=== PATIENT | female | born 1930 | race Caucasian/White ===

== ENCOUNTER 2017-02-18 10:48 | Inpatient (IN) ==
[2017-02-18] MEDS ORDERED: 0.9 % Sodium Chloride 1,000 ML ONE ×2 (11:06→11:39)
[2017-02-18] MEDS ORDERED: *HR* Heparin 10,000 UNIT/10 ML VIAL ONE (11:07)
[2017-02-18] MEDS ORDERED: Heparin 1,000 UNITS/500 mL NS 500 ML ONE (11:07)
[2017-02-18] MEDS ORDERED: Nitroglycerin 1,000 MCG/10 ML VIAL IV ONE (11:07)
--- NOTE | 2017-02-18 11:36 | Pre-Sedation Evaluation ---
Pre-sedation evaluation - Pre-sedation checklist Date of procedure: 02/18/17 Procedure: [facility] Recent Vitals: as documented in EMR H&P (including ROS) documented in medical record: Yes Previous reaction to sedatives/anesthetics: Unknown Dietary Status: unknown Airway Assessment: Patient can open mouth completely, TMJ function normal ASA Classification *see protocol: CLASS II-Mild systemic disease, E-EMERGENCY- Add to any of the above to indicate emergent Plan of Care: Pt appropriate candidate for procedure/moderate/conscious sedation , Risks/benefits of procedure/sedation discussed w/ patient/family, If not NPO; Risk of intake outweiged by necessity to perform procedure (STEMI)
[2017-02-18] MEDS ORDERED: *HR* Midazolam HCl 5 MG/5 ML VIAL IVP ONE (11:38)
[2017-02-18] MEDS ORDERED: *HR* Phenylephrine 10 MG/ML VIAL ONE (11:39)
[2017-02-18] MEDS ORDERED: *HR* FentaNYL (PF) 250 MCG/5 ML VIAL ONE (11:39)
--- NOTE | 2017-02-18 11:41 | Cardiology History & Physical ---
Date of Encounter: 02/18/17 Time of Encounter: 12:00 Assessment and Plan (1) Acute OH Current Visit: Yes Status: Acute EKG changes concerning for STEMI. Emergent LHC and risks explained to patient including 1% chance of OH//CVA/CABG/MAICOL/bleeding. She has increased risk of MAICOL given CKD. Patient aware and agreeable with plan. The assessment and plan as outlined above was discussed with the patient and/or family members who expressed understanding and agreement. All questions were answered. Qualifiers: Myocardial infarction ST status: ST elevation myocardial infarction Involved coronary artery: other inferior wall coronary artery Qualified Code(s ): I21.19 - ST elevation (STEMI) myocardial infarction involving other coronary artery of inferior wall (2) Acute renal failure Current Visit: No Status: Acute Contrast will be limited. The assessment and plan as outlined above was discussed with the patient and/or family members who expressed understanding and agreement. All questions were answered. Qualifiers: Acute renal failure type: unspecified Qualified Code(s): N17.9 - Acute kidney failure, unspecified (3) Left lower lobe pneumonia Current Visit: No Status: Acute Antibiotics will be continued. The assessment and plan as outlined above was discussed with the patient and/or family members who expressed understanding and agreement. All questions were answered. Qualifiers: Pneumonia type: due to unspecified organism Qualified Code(s): J18.1 - Lobar pneumonia, unspecified organism History of Present Illness Chief complaint: STEMI HPI: Ms. Jack is a 87 year old female with no previous cardiac history who is hospitalized at [facility] with pneumonia had ST elevation noted on telemetry this morning with EKG showing STEMI. She admits to having intermittent retrosternal chest discomfort that is nonradiating and not relieved with aspirin, heparin and brilinta. It is not associated with dyspnea. She has dementia but states she wants LHC and family wishes the same at this junction. Past Med Surg Social Fam HX - Past Medical History Medical history: cancer, COPD, CVA, dementia, GERD, hyperlipidemia, hypertension , renal disease Psychiatric history: no psych history - Past Surgical History Surgical History: , hysterectomy - Social History Smoking Status: Former smoker Smokeless Tobacco Status: No Alcohol use: none Drug use: none Medications and Allergies Acetaminophen [Tylenol] 650 mg PO Q4HR 02/17/17 [History] Albuterol Sulfate [Albuterol Inhaler] 2 puff IH Q6HR 02/17/17 [History] Amlodipine [Norvasc] 5 mg PO DAILY 02/17/17 [History] Bisacodyl [Laxative] 10 mg PO QAM 02/17/17 [History] CloNIDine HCl [Clonidine HCl] 0.2 mg PO BID 02/17/17 [History] Docusate [Colace] 100 mg PO BID 02/17/17 [History] GuaiFENesin ER [Mucinex] 600 mg PO TID 02/17/17 [History] Lactulose 20 gm PO QAM 02/17/17 [History] Losartan Potassium [Cozaar] 100 mg PO DAILY 02/17/17 [History] Lovastatin [Altoprev] 40 mg PO QAM 02/17/17 [History] Lovastatin [Altoprev] 40 mg PO QAM 02/17/17 [History] Magnesium Hydroxide [Milk of Magnesia] 400 mg PO QAM 02/17/17 [History] Omeprazole 20 mg PO QAM 02/17/17 [History] Vit C/E/Zn/Coppr/Lutein/Zeaxan [Preservision Areds 2 Softgel] 1 cap PO QAM 02/17 [History] Allergies No Known Allergies Allergy (Verified 02/17/17 18:07) All Systems Review: A 10-system review of systems was performed and is negative for pertinent findings except as documented above in the HPI.
[2017-02-18] MEDS ORDERED: DOPamine Premix 0 MG/0 ML BAG ONE (11:47)
[2017-02-18] MEDS ORDERED: *HR* Morphine 2 MG/ML SYRINGE IVP PRN (13:40)
[2017-02-18] MEDS ORDERED: Nitroglycerin 0.4 MG TAB.SUBL SL PRN (13:40)
[2017-02-18] MEDS ORDERED: Ondansetron 4 MG/2 ML VIAL IVP PRN (13:40)
--- NOTE | 2017-02-18 13:47 | Event Note ---
Date of Encounter: 02/18/17 Time of Encounter: 13:30 - Cardiology Event Note Inferior STEMI. RCA ODALYS 2 flow with subtotal occlusion s/p successful PTCA restoring ODALYS 3 coronary blood flow with residual 60% stenosis. Small vessel ~ 2mm. Unable to pass stent despite guide extension, multiple wire and multiple guides. At this point the patient symptoms resolved and ST segment have returned to baseline after PTCA.
--- NOTE | 2017-02-18 13:50 | Invasive Diagnostic Lab Proc ---
Name: Joslyn Jack Date of Study: 02/18/2017 Date: 1930 Ht: 63.0in Medical Record#: [id number] Age: 87 Wt: 134.48lb Gender: Female BSA: 1.63 Order #: [id number] BMI: 23.83 Physicians Procedure Physician: Saúl Quiles MD, [facility] Referring MD: Referring MD: Staff Name Position Time In Sites, [facility] RT (R) Monitor 12:07 PM AdiliaDeborah christensen RT (R) Scrub 12:07 PM Michael Flores RN Zone Manager 12:07 PM Indications Indication STEMI Procedures Performed Procedure L HRT ARTERY/VENTRICLE ANGIO PRQ CARD REVASC NM 1 VSL Pre-Procedure Checklist Informed consent is complete signed and on chart. H\\T\\P is on chart. ID band is on and ID verified with patient. Patient NPO for procedure The procedure was described for the patient and questions were answered. Blood Pressure: 91/43 ECG is on chart. Plan of Care Patient will tolerate the procedure without complications. Adequate level of comfort will be maintained. Hemodynamics will remain stable Patient will recover from procedure without complications. Respiratory function will be maintained. Cardiac rhythm will remain stable. Patient temperature will be maintained. Patient and/or family have verbalized understanding of the procedure. Patient Education Chief Complaint/Reason for Test: Cardiac Cath Developmental Category: Geriatric (65+ years) Developmentally Appropriate for Age: Yes Learning Barriers: Cognitive Education Needs: Procedure Education Method: Verbal Information Taught: Cardiac Cath Educational Evaluation: Not ready to learn Intravenous Access Time IV Size Location DC'd Fluid/Drip Rate Units RN 18g 1 /" Patent On Arrival Rt Forearm 0.9NaCl 25 ml/hr Michael Flores RN 22g 1" Patent On Arrival Lt Hand Michael Flores RN Allergies No Known Allergies Vital Signs Time BP (mmHg) HR (bpm) O2 Sat. RR (bpm) LOC 11:25 AM 91 / 53 47 93 % 16 5 = Fully awake and oriented or at pre-proc level 12:09 PM / % 5 = Fully awake and oriented or at pre-proc level 12:09 PM / % 4 = Oriented but drowsy 12:24 PM / % 4 = Oriented but drowsy 12:39 PM / % 4 = Oriented but drowsy 12:55 PM / % 4 = Oriented but drowsy 01:10 PM / % 4 = Oriented but drowsy 12:07 PM 131 / 55 56 98 % 22 12:12 PM 131 / 53 83 99 % 12:17 PM 123 / 55 93 98 % 16 12:22 PM 123 / 51 82 96 % 9 12:27 PM 130 / 55 103 98 % 12:32 PM 126 / 45 74 97 % 0 12:37 PM 120 / 54 86 98 % 16 12:42 PM 114 / 50 95 98 % 12:47 PM 118 / 54 83 97 % 12:52 PM 109 / 41 75 96 % 12:56 PM 104 / 45 80 99 % 19 01:02 PM 110 / 49 81 99 % 29 01:07 PM 118 / 52 98 99 % 01:12 PM 129 / 52 93 99 % 39 01:17 PM 127 / 50 97 97 % 19 01:22 PM 124 / 53 96 97 % 18 01:27 PM 127 / 58 97 97 % 01:32 PM 138 / 56 98 96 % 17 01:37 PM 142 / 91 129 97 % 4 01:25 PM / % 5 = Fully awake and oriented or at pre-proc level Procedural Medications Time Medication Dose Units Method Given By 12:09 PM Oxygen 2 L/min nasal cannula Michael Flores RN 12:19 PM Versed 1 mg Intravenous Michael Flores RN 12:19 PM Fentanyl 12.5 mcg Intravenous Michael Flores RN 12:19 PM Lidocaine 2% 15 ml Subcutaneous Saúl Quiles MD, [facility] 12:38 PM Heparin 2500 units Intravenous Michael Flores RN 12:52 PM Versed 1 mg Intravenous Michael Flores RN 12:52 PM Fentanyl 25 mcg Intravenous Michael Flores RN ASA Classification: Emergent Procedure: ASA score is assumed Sean Score Preprocedure Postprocedure Activity 2- Moves 4 extremities sustained head lift Activity 2- Moves 4 extremities sustained head lift Circulation 2- SBP +/= 20 points of pre-anesthetic level Circulation 2- SBP +/= 20 points of pre-anesthetic level Consciousness 2- Awake and alert oriented x 3 Consciousness 2- Awake and alert oriented x 3 O2 Saturation 2- Able to maintain O2 satruation of 92% on room air O2 Saturation 2- Able to maintain O2 satruation of 92% on room air Respiratory 2- Able to deep breathe and cough well Respiratory 2- Able to deep breathe and cough well Total Score 10 Total Score 10 Contrast Agent: Isovue Diagnostic Contrast: 75 ml Total Contrast: 75 ml Fluoro Dose: 1560 mGy Activated Clotting Time Time Seconds to Clot 12:38 PM 171 01:04 PM 333 01:39 PM 196 Procedure Log Time Note Enter By 11:21 AM CathStat 12:00 PM Pt arrived to [facility] pul[facility] farm 2 at 12:00 tsites 12:00 PM Physician arrived 12:00 tsites 12:00 PM Eliel and stefani completed tsites 12:00 PM Sign in performed according to hospital policy. tsites 12:00 PM Procedure start 12:00 tsites 12:00 PM Madalyn Allison RT (R) Position: Monitor Time in: 12:00 tsites 12:00 PM Deborah Pat RT (R) Position: Scrub Time in: 12:00 tsites 12:00 PM Michael Flores RN Position: Zone Manager Time in: 12:00 tsites 12:05 PM Case Start 12:05 PM Vitals capture started with the following parameters, Patient=Adult, Interval=5 min, Initial Ogzsobdj=137 mmHg, Deflation Rate=5 mmHg, Cuff placed on Left Arm 12:05 PM Recorded ECG: HR=78 Condition=Condition 1 12:06 PM Vitals capture stopped. 12:06 PM Vitals capture started with the following parameters, Patient=Adult, Interval=5 min, Initial Laolduwa=556 mmHg, Deflation Rate=5 mmHg, Cuff placed on Left Arm 12:06 PM Recorded ECG: HR=80 Condition=Condition 1 12:07 PM HR=56 bpm, JZFG=138/55 mmhg, SpO2=98.0 %, Resp=22 B/min 12:07 PM Patient charges- Angio tray pack, Navilyst 3mm J, Pulse Oximetry and ACIST tubing and transducer tsites 12:07 PM Case Delayed No tsites 12:09 PM Hair removed from procedure site in procedure lab using clippers. Bilateral groin prepped with Chloraprep by Madalyn Allison (R), safety strap applied then patient was draped. Skin intact. tsites 12:09 PM Time: 12:09 Oxygen on at 2 L/min per nasal cannula by Michael Flores RN tsites 12:09 PM Time: 12:09 Patient comfortable and pain free: Yes tsites 12:09 PM Time: 12:09LOC: 5 = Fully awake and oriented or at pre-proc level tsites 12:09 PM Clinical Presentation: STEMI or equivalent tsites 12:12 PM HR=83 bpm, IOUB=154/53 mmhg, SpO2=99 % 12:17 PM HR=93 bpm, LWPC=370/55 mmhg, SpO2=98 %, Resp=16 B/min 12:19 PM Time out performed according to hospital policy tsites 12:19 PM Time: 12:19 Versed 1 mg Intravenous Given by Michael Flores RN tsites 12:19 PM Time: 12:19 Fentanyl 12.5 mcg Intravenous Given by Michael Flores RN tsites 12:20 PM Pressure channel 1 zeroed. 12:20 PM Time: 12:19 15 ml Lidocaine 2% to right groin Subcutaneous Given by Saúl Quiles MD, [facility] tsites 12:21 PM Micro-Introducer Kit utilized for sheath placement tsites 12:22 PM HR=82 bpm, SNKM=851/51 mmhg, SpO2=96.0 %, Resp=9 B/min 12:23 PM Unsuccessful access attempt # 1 into the right Femoral artery. Manual pressure applied to achieve hemostasis.. tsites 12:24 PM Time: 12:09LOC: 4 = Oriented but drowsy tsites 12:24 PM Time: 12:09 Patient comfortable and pain free: Yes tsites 12:25 PM 5Fr FL 4 catheter inserted over the wire DN tsites 12:25 PM Access obtained by percutaneous puncture. 6Fr 10cm Terumo Monument sheath placed in right Femoral artery. [id number] tsites 12:26 PM LCA angiography performed in multiple views. tsites 12:26 PM Recorded Pressure: Ao, CO=621, Condition=Condition 1 (Aorta) Ao 100/53/75 12:27 PM TO=155 bpm, THUK=747/55 mmhg, SpO2=98 % 12:29 PM wire reinserted catheter removed tsites 12:29 PM 5Fr FR 4 catheter inserted over the wire [facility] tsites 12:31 PM RCA angiography performed in multiple views. tsites 12:32 PM Recorded Pressure: Ao, HR=80, Condition=Condition 1 (Aorta) Ao 75/41/56 12:32 PM HR=74 bpm, GHMB=658/45 mmhg, SpO2=97.0 %, Resp=0 B/min 12:32 PM PCI Status Emergency tsites 12:32 PM PCI Indication: Immediate PCI for STEMI tsites 12:33 PM 6Fr JL3.5 Runway guide catheter was used to cannulate the PCI vessel successfully. reused? No tsites 12:34 PM Inflation device was opened. tsites 12:35 PM Guide catheter removed intact. tsites 12:36 PM 6Fr AL1 Runway guide catheter was used to cannulate the PCI vessel successfully. reused? No tsites 12:36 PM ACT drawn tsites 12:37 PM HR=86 bpm, MFPR=507/54 mmhg, SpO2=98.0 %, Resp=16 B/min 12:37 PM Guide catheter removed intact. tsites 12:38 PM 6Fr AR1 Runway guide catheter was used to cannulate the PCI vessel successfully. reused? No tsites 12:38 PM At 12:38 the ACT was 171 seconds. tsites 12:38 PM Time: 12:38 Heparin 2500 units Intravenous Given by Michael Flores RN tsites 12:39 PM Time: 12:24 Patient comfortable and pain free: Yes tsites 12:39 PM Time: 12:24LOC: 4 = Oriented but drowsy tsites 12:40 PM .014 PT Graphix 182cm guide wire across target lesion- successful. reused? No tsites 12:41 PM 2.0 mm x 15 mm Emerge Monorail balloon across target lesion- successful. reused? No tsites 12:41 PM Lesion found in Mid RCA. Pre Stenosis: 99 Pre ODALYS Flow: 2: Partial Flow/Perfusion (> 1 but < 3) tsites 12:42 PM HR=95 bpm, SZEK=339/50 mmhg, SpO2=98 % 12:42 PM Right Coronary, Right Posterior Descending Arteries with Right Posterolateral and Acute Marginal branches with 99 % stenosis. If graft is supplying this area, 0 % stenosis tsites 12:43 PM Recorded Pressure: Ao, HR=82, Condition=Condition 1 (Aorta) Ao 100/42/67 12:45 PM Balloon inflated @ 8 eric for 12 seconds tsites 12:46 PM Balloon catheter removed intact. tsites 12:47 PM HR=83 bpm, VECH=650/54 mmhg, SpO2=97 % 12:47 PM 1.2 mm x 12 mm Pressure Vessel Inspector Monorail balloon across target lesion- successful. reused? No tsites 12:48 PM Balloon catheter removed intact. tsites 12:49 PM 6Fr Guidezilla advanced tsites 12:49 PM 1.2x12 Pressure Vessel Inspector reinserted tsites 12:50 PM Lesion found in Mid LAD. Pre Stenosis: 60 Pre ODALYS Flow: tsites 12:51 PM Lesion found in Mid Circumflex. Pre Stenosis: 99 Pre ODALYS Flow: tsites 12:51 PM Mid/Distal Left Anterior Descending Coronary Artery and diagonal branches with 60% stenosis. If graft is supplying this area, 0 % stenosis tsites 12:51 PM Circumflex, Obtuse Marginal, Left Posterior Descending, and Left Posterolateral Coronary Arteries with 99 % stenosis. If graft is supplying this area, 0 % stenosis tsites 12:52 PM HR=75 bpm, ZPMF=246/41 mmhg, SpO2=96.0 % 12:52 PM Time: 12:52 Versed 1 mg Intravenous Given by Michael Flores RN tsites 12:52 PM Time: 12:52 Fentanyl 25 mcg Intravenous Given by Michael Flores RN tsites 12:54 PM Balloon inflated @ 14 eric for 15 seconds tsites 12:55 PM Time: 12:39LOC: 4 = Oriented but drowsy tsites 12:55 PM Time: 12:39 Patient comfortable and pain free: Yes tsites 12:55 PM Balloon inflated @ 14 eric for 7 seconds tsites 12:56 PM NIBP STAT measurement started. 12:56 PM Balloon inflated @ 14 eric for 10 seconds tsites 12:56 PM Balloon inflated @ 14 eric for 8 seconds tsites 12:56 PM HR=80 bpm, DVRD=722/45 mmhg, SpO2=99 %, Resp=19 B/min 12:56 PM Guide catheter removed intact. tsites 12:57 PM 2.0x15 Emerge reinserted tsites 12:58 PM ACT drawn tsites 01:00 PM Balloon inflated @ 14 eric for 22 seconds tsites 01:00 PM Balloon inflated @ 14 eric for 14 seconds tsites 01:02 PM HR=81 bpm, HGMA=595/49 mmhg, SpO2=99 %, Resp=29 B/min 01:04 PM At 13:04 the ACT was 333 seconds. tsites 01:05 PM Balloon catheter removed intact. tsites 01:06 PM 2.0mm x 18mm Multi-Link Mini Vision RX Stent bare metal stent across target lesion- successful Lot #[id number] tsites 01:07 PM HR=98 bpm, SRWF=835/52 mmhg, SpO2=99 % 01:10 PM Time: 12:55 Patient comfortable and pain free: Yes tsites 01:10 PM Time: 12:55LOC: 4 = Oriented but drowsy tsites 01:12 PM HR=93 bpm, AMWA=138/52 mmhg, SpO2=99 %, Resp=39 B/min 01:17 PM HR=97 bpm, HSRJ=911/50 mmhg, SpO2=97 %, Resp=19 B/min 01:17 PM Guide wire removed intact. tsites 01:17 PM Stent delivery system removed intact. tsites 01:18 PM Guide catheter removed intact. tsites 01:18 PM 6Fr MPA Runway guide catheter was used to cannulate the PCI vessel successfully. reused? No tsites 01:21 PM Guide catheter removed intact. tsites 01:21 PM 6Fr IM Runway guide catheter was used to cannulate the PCI vessel successfully. reused? No tsites 01:22 PM HR=96 bpm, RPWN=836/53 mmhg, SpO2=97 %, Resp=18 B/min 01:24 PM .014 ChoICE PT Extra Support 182cm guide wire across target lesion- successful. reused? No tsites 01:25 PM Time: 13:10LOC: 4 = Oriented but drowsy tsites 01:25 PM Time: 13:10 Patient comfortable and pain free: Yes tsites 01:25 PM Guide wire removed intact. tsites 01:26 PM .014 PT Graphix 182cm guide wire across target lesion- successful. reused? No tsites 01:27 PM HR=97 bpm, NGNG=204/58 mmhg, SpO2=97 % 01:27 PM Guide wire removed intact. tsites 01:28 PM .014 Prowater 180cm guide wire across target lesion- successful. reused? No tsites 01:31 PM Guide wire removed intact. tsites 01:31 PM Guide catheter removed intact. tsites 01:31 PM 5Fr Pigtail catheter inserted over the wire [facility] tsites 01:31 PM Catheter selectively placed in left ventricle tsites 01:32 PM HR=98 bpm, FMCZ=512/56 mmhg, SpO2=96.0 %, Resp=17 B/min 01:33 PM Recorded Pressure: LV, HR=98, Condition=Condition 1 (Left Ventricle) LV 143/-2/15 01:33 PM Recorded Pressure: LV, Ao, HR=98, Condition=Condition 1 (Left Ventricle) LV 140/-7/17, (Aorta) Ao 140/45/82 01:34 PM EDP measured tsites 01:35 PM Catheter removed tsites 01:35 PM Procedure completed at 13:35 tsites 01:36 PM Sign out completed: Radiation Dose 1560 mGy Fluoro Time: 30.3 Isovue 370 - 500ml contrast 75 ml given by Saúl Quiles MD, [facility]. Complications: NoneCardiac Rehab Consult needed: YesConfirmed administered medications: Yes tsites 01:36 PM Isovue 370 - 500ml,1 Bottle(s) used. tsites 01:36 PM Sheath left in place to be pulled on floor/holding areaV+Pad tsites 01:36 PM Post ECG NSR tsites 01:37 PM KQ=463 bpm, WBNG=169/91 mmhg, SpO2=97 %, Resp=4 B/min 01:37 PM Post Blood Pressure 142/91 tsites 01:37 PM 13:37 Post Pulses Bilateral DP \\T\\ PT 1+ tsites 01:37 PM Information taught Cardiac Cath and PCI tsites 01:37 PM Education needs Procedure, Plan of Care, and Responsibilities of Patient in Care tsites 01:37 PM Learning barriers :None tsites 01:37 PM Education Methods Verbal tsites 01:37 PM Education evaluation Able to repeat information tsites 01:37 PM Site status No bleeding/hematoma - Rt Groin as reported by Deborah Pat RT (R) at 13:37 tsites 01:37 PM Opsite applied tsites 01:37 PM Plavix, Effient or Brilinta given Yes in [facility] tsites 01:37 PM Delay to floor No tsites 01:37 PM Patient out of room: 13:37 tsites 01:38 PM Report given to Sudarshan GANT Pt taken to ICU Room #12. 13:37 tsites 01:38 PM Family placed in consult room. tsites 01:39 PM At 13:39 the ACT was 196 seconds. tsites 01:41 PM Time: 13:25 Patient comfortable and pain free: Yes tsites 01:41 PM Time: 13:25LOC: 5 = Fully awake and oriented or at pre-proc level tsites 01:43 PM Coronary Dominance: right tsites Complications Complication None Hemodynamics Pressures Site Systolic/A Wave Diastolic/V Wave Mean AO 100 53 75 AO 75 41 56 AO 100 42 67 LV 143 -2 15 LV 140 -7 17 AO 140 45 82 Post Procedure Information Blood Pressure: 142/91 mmHg Rhythm: NSR Post procedural instructions were given Closure Device Time Device Success/Fail 02/18/2017 1:41:00 PM Manual Compression Site Checks Time Location Status Staff Sheath In? Note 01:37 PM Rt Groin No bleeding/hematoma Deborah Pat RT (R) Pulses Time Site Pre-Procedure Post-Procedure Note 1:37:00 PM Bilateral DP \\T\\ PT 1+ Updated by Madalyn Allison, RT (R) on 02/18/2017 1:45:05 PM Madalyn Allison RT electronically signed on 02/18/2017 1:45:46 PM with status of Final
--- NOTE | 2017-02-18 14:09 | Invasive Diagnostic Lab ---
Name: Joslyn Jack Date of Study: 02/18/2017 Date: 1930 Ht: 160.0 cm /63.0 in Medical Record#: [id number] Age: 87 Wt: 61. kg / 134.48 lb Account/Order#: [id number] Gender: Female BSA: 1.63 Order #: [id number] Fluoro Dose: 1560 mGy BMI: 23.83 Procedure Physician: Saúl Quiles MD, FACC Referring MD: Referring MD: Procedures Performed: LEFT HEART CATH PCI of Acute NM Indications: STEMI Impressions: There is severe one vessel coronary artery disease. Patient had successful PTCA in the mid RCA. ODALYS 3 restored and patient symptom free with ST segment returned to baseline. Recommendations: Optimal medical therapy of patient's disease. Aggressive risk factor modification. History/Risk Factors: Dementia COPD HPTN CVA Lung CA COPD (emphysema) Hyperlipidemia Hyst GERD Procedure Access obtained in the right Femoral artery by percutaneous puncture Patient had successful PTCA in the mid RCA. Complications: None Contrast: Isovue 75ml Closure Device: Manual Compression Hemodynamics: Pressures Site Systolic/ A Wave Diastolic/ V Wave End Diastolic/ Mean HR AO 100 53 75 119 AO 75 41 56 80 AO 100 42 67 82 LV 143 -2 15 98 LV 140 -7 17 99 AO 140 45 82 98 Coronary Dominance: right Lesion Findings/Interventions * Left Main Coronary Artery The LMCA is angiographically free of disease. * Left Anterior Descending There is a 60% stenosis in the Mid LAD. * Circumflex The Circumflex has ipsilateral collaterals. There is a 100% stenosis in the Mid Circumflex, WAGE CONCILIATOR, with ipsilateral collaterals. The lesion has no thrombus present. * Right Coronary Artery Interventional Device(s) Vessel Segment Type Name Diameter (mm) Length (mm) Mid RCA Balloon Emerge Monorail 2 15 Mid RCA Balloon Engraver Wood Monorail 1.2 12 Updated by Madalyn Estefany, RT (R) on 02/18/2017 1:45:51 PM Saúl Qulies MD, FACC electronically signed on 02/18/2017 2:03:38 PM with status of Final
[2017-02-18] MEDS: 0.9 % Sodium Chloride 1,000 ML IVC SCH (14:29)
[2017-02-18] MEDS ORDERED: *HR* Atropine Sulfate 1 MG/10 ML SYRINGE ONE (15:04)
[2017-02-18] MEDS ORDERED: *HR* Enoxaparin 60 MG/0.6 ML SYRINGE SQ ONE (17:00)
[2017-02-18] MEDS: Acetaminophen 325 MG TABLET PO SCH ×2 (17:43→21:20)
[2017-02-18] MEDS: *HR* Ticagrelor 90 MG TABLET PO SCH (21:20)
[2017-02-18] MEDS: cloNIDine HCl 0.1 MG TABLET PO SCH (21:20)
[2017-02-19 04:35] LABS: Basophils % 0.1 %; Hemoglobin 9.6 g/dL (11.5-15.4); Immature Granulocytes % 1.1 % (0-4); Lymphocytes # 0.8 K/mcL (0.6-4.6); Lymphocytes % 4.2 %; Mean Corpuscular Hemoglobin 29.6 pg (28.0-33.3); Mean Corpuscular Volume 92.6 fL (83.0-100.0); Mean Platelet Volume 9.9 fL (9.4-12.4); Monocytes # 1.2 K/mcL (0.0-1.3); Monocytes % 6.5 %; Neutrophils # 15.7 K/mcL (1.6-8.9); Platelet Count 290 K/mcL (140-400); Red Blood Count 3.24 M/mcL (3.82-4.97); Red Cell Distribution Width 14.3 % (11.5-14.5); Segmented Neutrophils % 88.1 %
[2017-02-19 04:41] LABS: BUN/Creatinine Ratio 28 (6-26); Blood Urea Nitrogen 26 mg/dL (7-20); Calcium 8.6 mg/dL (8.6-10.8); Carbon Dioxide 21 mEq/L (19-29); Chloride 111 mEq/L (98-109); Glucose 130 mg/dL (70-99); Osmolality,Calculated 299 (280-300); Potassium 3.7 mEq/L (3.5-4.5); Sodium 141 mEq/L (136-145); eGFR For African Americans > 60 (> 60); eGFR For Non-African Americans 58 (> 60)
[2017-02-19] MEDS: Acetaminophen 325 MG TABLET PO SCH ×5 (06:23→19:38)
--- NOTE | 2017-02-19 07:54 | Cardiology Progress Note ---
Date of Encounter: 02/19/17 Time of Encounter: 07:50 Assessment and Plan (1) Left lower lobe pneumonia Current Visit: No Status: Acute Per Cardiology: Presented to [facility] from alf with CT scan showing left pleural effusion and suspicious for pneumonia. Started by antibiotics at that facility. Leukocytosis noted-- WBC 18.3. Afebrile. We'll consult pulmonology for further management and recommendations. Not currently on antibiotics upon transfer. Has apparent history of lung cancer. Qualifiers: Pneumonia type: due to unspecified organism Qualified Code(s): J18.1 - Lobar pneumonia, unspecified organism (2) Pleural effusion on left Current Visit: No Status: Acute Per Cardiology: CT scan shows moderate left-sided pleural effusion. Again, pulmonology consult pending. (3) Acute renal failure Current Visit: No Status: Acute Per Cardiology: Upon arrival to [facility] presented with acute kidney injury with creatinine 1.97 and GFR 24. Kidney function normalized. Status post catheterization, will continue to monitor closely. Consider nephrology consult if clinically warranted. Currently on ARB, will monitor. Qualifiers: Acute renal failure type: unspecified Qualified Code(s): N17.9 - Acute kidney failure, unspecified (4) Acute MS Current Visit: Yes Status: Acute Per Cardiology: Transferred from [facility] for acute Inferior STEMI in setting of pneumonia. Peak troponin 11.64. RCA with subtotal occlusion s/p successful PTCA with residual 60% stenosis-- small vessel ~2mm, unable to pass stent. Catheterization also shows mid LAD 60% stenosis and 100% mid circumflex [employer] ADMINISTR[employer] with ipsilateral collaterals. On aspirin, statin, ARB, and Brilinta. Echo pending. Previous records reviewed and appears patient was DNR Comfort Care however rescinded and setting of acute MS and taken to catheter lab. We'll need to readdress Code Status. Qualifiers: Myocardial infarction ST status: ST elevation myocardial infarction Involved coronary artery: other inferior wall coronary artery Qualified Code(s ): I21.19 - ST elevation (STEMI) myocardial infarction involving other coronary artery of inferior wall Discussion w patient/family: The assessment and plan as outlined above was discussed with the patient and/or family members who expressed understanding and agreement. All questions were answered. Thank you for involving us in the care of your patient. Please call with any questions. We'll consult social work and physical therapy for discharge planning. Subjective Principal diagnosis: Acute MS Interval history: Patient denies any chest pain or palpitations. Reports positive cough with production of whitish sputum. Denies any fever or chills. Denies any concerns from right groin site. Objective Vital Signs, Last 4 Hours Pulse Resp BP Pulse Ox 02/19/17 07:50 75 02/19/17 07:00 75 18 129/50 93 02/19/17 06:00 87 20 139/74 91 02/19/17 05:19 64 16 121/59 94 02/19/17 04:00 82 23 113/67 94 General: Conversant, No Apparent Distress HEENT: Atraumatic, Normocephaly, Mucus Membranes Moist Neck: No JVD, Normal carotid pulses Cardiac: Reg Rate and Rhythm, Normal S1 and S2, No Murmur Lungs: Other (Diminished breath sounds bilateral bases, respirations mildly labored at rest, positive cough noted, scattered rhonchi throughout) Neuro: Alert and responsive, No focal deficits noted Abdomen: Soft, Non-Tender Skin: No rashes noted on visualized skin, Other (Right groin site dry and intact , no hematoma, no ecchymosis, right dorsalis pedis and posterior tibial pulses 2 + palpable and warm to touch) Musculoskeletal: No Chest Wall Tenderness Extremities: No Edema, Normal Pulses Results 02/19/17 04:20 02/19/17 04:20 Lab Results Laboratory Tests 02/17/17 02/18/17 02/19/17 18:27 11:16 04:20 WBC 22.7 H 17.9 H Hgb 10.4 L 9.6 L Hct 30.0 L Troponin I 11.64 H* Laboratory Tests 02/17/17 02/18/17 02/19/17 18:27 04:38 04:20 Creatinine 1.97 H 1.70 H 0.92 Est GFR (Non-Af Amer) 24 L 29 L 58 L Active Medications Acetaminophen (Tylenol) 650 mg PO Q4HR ROCÍO Stop: 08/20/17 16:01 Last Admin: 02/19/17 07:52 Dose: Not Given Albuterol Sulfate (Albuterol Inhaler) 2 puff IH [id number] ROCÍO Stop: 08/20/17 18:01 Last Admin: 02/19/17 03:58 Dose: 2 puff Amlodipine Besylate (Norvasc) 5 mg PO DAILY [facility] PRN Reason: Protocol Stop: 08/21/17 09:01 Aspirin (Aspirin) 81 mg PO DAILY [facility] Stop: 08/21/17 09:01 Atorvastatin Calcium (Lipitor) 80 mg PO HS [facility] Stop: 08/20/17 21:01 Last Admin: 02/18/17 21:21 Dose: 80 mg Bisacodyl (Dulcolax) 10 mg PO QAM [facility] Stop: 08/21/17 09:01 Clonidine HCl (Clonidine Hcl) 0.2 mg PO BID ROCÍO Stop: 08/20/17 21:01 Last Admin: 02/18/17 21:20 Dose: 0.2 mg Docusate Sodium (Colace) 100 mg PO BID [facility] PRN Reason: Protocol Stop: 08/20/17 21:01 Last Admin: 02/18/17 21:20 Dose: 100 mg Guaifenesin (Mucinex) 600 mg PO TID [facility] Stop: 08/20/17 15:01 Last Admin: 02/18/17 21:21 Dose: 600 mg Sodium Chloride (0.9 % Sodium Chloride) 1,000 mls @ 50 mls/hr IVC .Q20H [facility] Stop: 08/20/17 13:46 Last Admin: 02/18/17 14:29 Dose: 50 mls/hr Isosorbide Mononitrate (Imdur) 30 mg PO DAILY [facility] Stop: 08/21/17 09:01 Lactulose (Lactulose) 20 gm PO QAM [facility] Stop: 08/21/17 09:01 Losartan Potassium (Cozaar) 100 mg PO DAILY [facility] Stop: 08/21/17 09:01 Magnesium Hydroxide (Milk Of Magnesia Conc) 5 ml PO QAM [facility] Stop: 08/21/17 09:01 Morphine Sulfate (Morphine Sulfate) 2 mg IVP Q2H PRN PRN Reason: Severe Pain Stop: 08/20/17 13:41 Nitroglycerin (Nitroglycerin) 0.4 mg SL Q5MIN PRN PRN Reason: Chest Pain Stop: 08/20/17 13:41 Omeprazole (Prilosec) 20 mg PO DAILY@0730 [facility] Stop: 08/21/17 07:31 Ondansetron HCl (Zofran) 4 mg IVP Q6HR PRN; Protocol PRN Reason: Nausea And Vomiting Stop: 08/20/17 13:41 Pharmacy Profile Note (Patient Taking Own Medication) 0 each PO QAM [facility] Stop: 08/21/17 09:01 Ticagrelor (Brilinta) 90 mg PO BID [facility] Stop: 08/20/17 21:01 Last Admin: 02/18/17 21:20 Dose: 90 mg - Imaging and Cardiology Echo: pending Cardiac cath: other (note reviewed) - EKG Interpretation EKG results cardiology: other (24-hour telemetry reviewed with average heart rate 86, sinus rhythm, occasional PVCs)
[2017-02-19] MEDS ORDERED: Aspirin 81 MG TAB.CHEW PO SCH (09:00)
[2017-02-19] MEDS ORDERED: [UNRECOGNIZED DRUG - OTHER] PO SCH (09:00)
[2017-02-19] MEDS ORDERED: MOM Conc 10 ML UD.LIQ PO SCH (09:00)
[2017-02-19] MEDS ORDERED: Lactulose Oral Soln 20 GM/30 ML UDC PO SCH (09:00)
[2017-02-19] MEDS ORDERED: amLODIPine 5 MG TABLET PO SCH (09:00)
[2017-02-19] MEDS ORDERED: Isosorbide MONOnitrate (24 HR) 30 MG TAB.ER.24H PO SCH (09:00)
--- NOTE | 2017-02-19 09:27 | Pulmonology Consult Note ---
Date of Encounter: 02/19/17 Time of Encounter: 09:27 Assessment and Plan (1) Left lower lobe pneumonia Current Visit: No Status: Acute Patient presents to the white count and productive cough it is unclear if this leukocytosis is reflective of stress-induced from underlying myocardial infarction or truly represents pneumonia although with radiographic suggestion and symptoms I am more inclined to believe this is more indicative of an infection. We will put the patient on Augmentin twice a day for 7 days to complete therapy based upon clinical course for community acquired pneumonia Qualifiers: Pneumonia type: due to unspecified organism Qualified Code(s): J18.1 - Lobar pneumonia, unspecified organism (2) COPD with acute exacerbation Current Visit: Yes Status: Acute Mild COPD exacerbation given 5 days of parenteral steroids prednisone 40 mg I have scheduled duo nebs every 4-6 hours to be given tobacco abuse is in remission (3) DVT prophylaxis Current Visit: Yes Status: Acute Recommend chemical DVT prophylaxis while inpatient (4) Pleural effusion on left Current Visit: No Status: Acute It appears that the pleural effusion is been present since at least last year when the CTA was performed. It does look slightly enlarged from prior. It is very possible that this represents malignant effusion given at least history of underlying lung nodule/lung cancer I suspect what happened is that the patient has much more to her medical record than what can be accessed at current time and may require merging of charts or discussion was medical records to see about retrieving prior records (unfortunately they are not available today although an attempt to contact was made). The fluid itself on CT scan does not look complex since I do not think there is any urgency to necessarily perform thoracentesis at this time given that she is essentially asymptomatic. Once we have more data we can make a more informed recommendation regarding management of pleural effusion and if she does have underlying lung malignancy (5) Acute MO Current Visit: Yes Status: Acute This is being managed by the primary cardiology service Qualifiers: Myocardial infarction ST status: ST elevation myocardial infarction Involved coronary artery: other inferior wall coronary artery Qualified Code(s ): I21.19 - ST elevation (STEMI) myocardial infarction involving other coronary artery of inferior wall History of Present Illness Consult date: 02/19/17 Requesting physician: Katie Shields Reason for consult: pneumonia Chief complaint: Cough History of present illness: This is an 87-year-old woman with a past medical history that consist of prior CVA COPD with tobacco abuse in remission who presented from [place] for STEMI. She underwent balloon angioplasty for a nearly occluded RCA and also had some other residual disease that was not intervened upon but was going to be managed medically. As part of evaluation she had a CT scan that was done that was notable for a large left-sided effusion with possible pneumonia and some concern for underlying lung nodules. Pulmonary was consulted to further evaluate these respiratory abnormalities The patient is a willing but poor historian. I tried to gather as much history as I could from the medical record the patient and the family who is at bedside. Apparently she has been diagnosed with lung cancer in the past and said that there is nothing they can do for her per the niece who is one of her primary caregivers. They also state that patient has been evaluated here at this hospital before and possibly even had a lung biopsy and been seen by a lung specialist. I did try to bring up all of her medical record but I do not see any evidence of this as of yet. Currently the patient is chest pain-free she does endorse a cough that is productive of whitish phlegm she denies any shortness of breath in general she says she is feeling quite well and is happy eating her lunch at the bedside she is not requiring any supplemental oxygen at present Past Med Surg Social Fam HX - Past Medical History Medical history: cancer, COPD, CVA, dementia, GERD, hyperlipidemia, hypertension , renal disease Psychiatric history: no psych history - Past Surgical History Surgical History: , hysterectomy - Social History Smoking Status: Former smoker Smokeless Tobacco Status: No Alcohol use: none Drug use: none Medications and Allergies Acetaminophen [Tylenol] 650 mg PO Q4HR 02/17/17 [History] Albuterol Sulfate [Albuterol Inhaler] 2 puff IH Q6HR 02/17/17 [History] Amlodipine [Norvasc] 5 mg PO DAILY 02/17/17 [History] Bisacodyl [Laxative] 10 mg PO QAM 02/17/17 [History] CloNIDine HCl [Clonidine HCl] 0.2 mg PO BID 02/17/17 [History] Docusate [Colace] 100 mg PO BID 02/17/17 [History] GuaiFENesin ER [Mucinex] 600 mg PO TID 02/17/17 [History] Lactulose 20 gm PO QAM 02/17/17 [History] Losartan Potassium [Cozaar] 100 mg PO DAILY 02/17/17 [History] Lovastatin [Altoprev] 40 mg PO QAM 02/17/17 [History] Magnesium Hydroxide [Milk of Magnesia] 400 mg PO QAM 02/17/17 [History] Omeprazole 20 mg PO QAM 02/17/17 [History] Vit C/E/Zn/Coppr/Lutein/Zeaxan [Preservision Areds 2 Softgel] 1 cap PO QAM 02/17 [History] Allergies No Known Allergies Allergy (Verified 02/17/17 18:07) All Systems: A 10-system review of systems was performed and is negative for pertinent findings except as documented above in the HPI. Physical Examination Vital Signs: Vital Signs, Last 4 Hours Temp Pulse Resp BP Pulse Ox 02/19/17 07:52 98.0 F 02/19/17 07:50 75 02/19/17 07:00 75 18 129/50 93 02/19/17 06:00 87 20 139/74 91 General appearance: no acute distress ENT: oropharynx moist Neck: supple, no lymphadenopathy Effort: normal Auscultation: left: diminished breath sounds, bilateral: wheezes, rales ( scattered ) Cardiovascular: regular rate and rhythm Gastrointestinal: normoactive bowel sounds Integumentary: normal Extremities: no clubbing Musculoskeletal: no deformities normal mental status, non-focal exam mood appropriate Results - Laboratory Findings CBC and BMP: 02/19/17 04:20 02/19/17 04:20 Abnormal lab findings: Abnormal lab results WBC 17.9 K/mcL (4.3-11.1) H 02/19/17 04:20 RBC 3.24 M/mcL (3.82-4.97) L 02/19/17 04:20 Hgb 9.6 g/dL (11.5-15.4) L 02/19/17 04:20 Hct 30.0 % (35.3-44.9) L 02/19/17 04:20 Neutrophils # 15.7 K/mcL (1.6-8.9) H 02/19/17 04:20 Chloride 111 mEq/L (98-109) H 02/19/17 04:20 BUN 26 mg/dL (7-20) H 02/19/17 04:20 Est GFR (Non-Af Amer) 58 (> 60) L 02/19/17 04:20 BUN/Creatinine Ratio 28 (6-26) H 02/19/17 04:20 Glucose 130 mg/dL (70-99) H 02/19/17 04:20 - Diagnostic Findings Chest x-ray: report reviewed, image reviewed CT scan - chest: report reviewed, image reviewed - Clinical Findings Intake & Output: Intake & Output 02/18/17 02/19/17 02/19/17 23:59 07:59 15:59 Intake Total 0 / 0 0 / 0 Output Total 350 / 350 0 / 0 Balance -350 / -350 0 / 0 Weight 54.9 kg
[2017-02-19] MEDS: cloNIDine HCl 0.1 MG TABLET PO SCH ×2 (11:14→19:39)
[2017-02-19] MEDS: *HR* Ticagrelor 90 MG TABLET PO SCH ×2 (11:14→19:40)
--- NOTE | 2017-02-19 13:36 | ECHO - Doppler Report ---
Echo with Saline Contrast Name: Joslyn Jack Date of Study: 02/19/2017 Date: 1930 Ht: 62.0 in Medical Record#: [id number] Age: 87 Wt: 115.0 lb Gender: Female BSA: 1.51 Order #: [id number] Location: [facility] Room #: 12 Reading Physician: Katie Shields DO Credit Director: Joy Messina Ordering Physician: Saúl Quiles MD, [facility] Primary Physician: Rodney Coffey MD Indications: ACS Impressions: LVEF 45-50%. Mild global LV systolic dysfunction with regional variations. Normal right ventricular size and function. Mild mitral regurgitation. Mild-moderate tricuspid regurgitation. Mild pulmonary hypertension. Left Ventricular Wall Motion: Rest Echo Findings The mid inferior, basal inferior, mid inferior lateral and basal inferior lateral [place] were hypokinetic. All other wall segments showed normal motion. Findings: Study Quality * Technically adequate exam. ECG Findings * Normal sinus rhythm. Left Ventricle * Mild left ventricular diastolic dysfunction. * LVEF 45-50%. * Normal size and wall thickness. Mitral Valve * No mitral stenosis. * Mildly thickened mitral valve leaflets. * Mild mitral regurgitation. Aortic Valve * No aortic regurgitation. * Trileaflet aortic valve. * Normal aortic valve structure. * No aortic stenosis. Tricuspid Valve * Normal tricuspid valve structure. * Mild-moderate tricuspid regurgitation. * Estimated RA pressure is 3 mmHg. * Estimated RVSP is 43 mmHg. * Mild pulmonary hypertension. Pulmonic Valve * Pulmonic valve is not well visualized. * No pulmonic stenosis. * Trace pulmonic regurgitation. Pulmonary Artery * Pulmonary artery not well visualized. Right Ventricle * Normal right ventricular structure and function. Right Atrium * Normal right atrial size. Left Atrium * Severely dilated left atrium. Interatrial Septum * There is a PFO by agitated saline contrast. Pericardium * There is no pericardial effusion present. IVC * Normal IVC dimensions and inspiratory collapse. Aorta * Normally sized aortic root. History Hypertension Hypercholesteremia Years 37 Packs 1 Family History of CAD History of CAD/PTCA Myocardial Infarction 08/17/2016 a Previous Echo was performed. Contrast: Agitated saline 20 ml. Measurements: BP: 139/ 74 2D Normal Values IVSd: 1.10 cm 0.6 - 1.0 cm LVIDd: 4.30 cm 3.7 - 5.6 cm LVPWd: 1.10 cm 0.6 - 1.1 cm LVIDs: 3.20 cm 1.5 - 3.6 cm AO: 2.40 cm < 4.0 cm LA: 4.00 cm 2.0 - 4.0cm %FS: 25.60 cm >25 % LA volume: 76 Mitral Valve Peak E:1.23 m/sec Peak A:1.53 m/sec E/A Ratio:0.8 Peak E' Lat Johann:7.12 cm/s Peak E' Med Johann:4.29 cm/s E/E' Lat Ratio:17.3 E/E' Med Ratio:28.7 Tricuspid Valve TV Regurg Peak Grad: 40.00mmHg TV Regurg Peak Johann: 3.18m/sec Updated by Katie Shields on 02/19/2017 1:27:59 PM electronically signed on 02/19/2017 1:31:54 PM with status of Final Wall Motion [place]: 1=Normal, 2=Hypokinesis, 3=Akinesis, 4=Dyskinesis, 5=Aneurysmal, 6=Hyperkinetic, X=Not Visualized (Blank)=Missing
--- NOTE | 2017-02-19 14:02 | Electrocardiograph Report ---
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
--- NOTE | 2017-02-19 15:19 | Event Note ---
Date of Encounter: 02/19/17 Time of Encounter: 15:15 - Cardiology Event Note Appreciate pulmonology recommendations. Patient has decided to resume her previous CODE STATUS of DNR Comfort Care arrest/DNI. Discussed and reviewed with Dr. Shields. Will transfer to stepdown floor. Anticipate potential discharge back to long-term in [facility] tomorrow.
[2017-02-19] MEDS ORDERED: *HR* Morphine 2 MG/ML SYRINGE IVP PRN (15:38)
[2017-02-19] MEDS ORDERED: Ondansetron 4 MG/2 ML VIAL IVP PRN (15:38)
[2017-02-19] MEDS ORDERED: Nitroglycerin 0.4 MG TAB.SUBL SL PRN (15:38)
[2017-02-19] MEDS: Ipratropium/Albuterol Neb 3 ML IH SCH ×2 (15:51→19:57)
[2017-02-19] MEDS ORDERED: Ipratropium/Albuterol Neb 3 ML IH SCH (16:00)
[2017-02-20] MEDS: Ipratropium/Albuterol Neb 3 ML IH SCH ×4 (00:28→11:07)
[2017-02-20] MEDS: Acetaminophen 325 MG TABLET PO SCH ×4 (01:01→13:26)
[2017-02-20] MEDS: 0.9 % Sodium Chloride 1,000 ML IVC SCH (07:36)
[2017-02-20] MEDS: cloNIDine HCl 0.1 MG TABLET PO SCH (07:45)
[2017-02-20] MEDS: *HR* Ticagrelor 90 MG TABLET PO SCH (07:47)
--- NOTE | 2017-02-20 08:25 | Pulmonology Progress Note ---
Date of Encounter: 02/20/17 Time of Encounter: 08:25 Subjective Principal diagnosis: Acute NH Objective PUL Vital signs: Last Vital Signs Temp 98.3 F 02/20/17 04:20 Pulse 100 02/20/17 07:30 Resp 20 02/20/17 07:30 BP 155/68 02/20/17 07:30 Pulse Ox 96 02/20/17 07:30 Results - Laboratory Findings CBC and BMP: 02/19/17 04:20 02/19/17 04:20 Abnormal lab findings: Abnormal lab results WBC 17.9 K/mcL (4.3-11.1) H 02/19/17 04:20 RBC 3.24 M/mcL (3.82-4.97) L 02/19/17 04:20 Hgb 9.6 g/dL (11.5-15.4) L 02/19/17 04:20 Hct 30.0 % (35.3-44.9) L 02/19/17 04:20 Neutrophils # 15.7 K/mcL (1.6-8.9) H 02/19/17 04:20 Chloride 111 mEq/L (98-109) H 02/19/17 04:20 BUN 26 mg/dL (7-20) H 02/19/17 04:20 Est GFR (Non-Af Amer) 58 (> 60) L 02/19/17 04:20 BUN/Creatinine Ratio 28 (6-26) H 02/19/17 04:20 Glucose 130 mg/dL (70-99) H 02/19/17 04:20 - Clinical Findings Intake & Output: Intake & Output 02/19/17 02/20/17 02/20/17 23:59 07:59 15:59 Intake Total 340 / 340 600 / 600 Output Total 150 / 150 Balance 340 / 340 450 / 450 Weight 54.703 kg
[2017-02-20] MEDS ORDERED: [UNRECOGNIZED DRUG - OTHER] PO SCH (09:00)
[2017-02-20] MEDS ORDERED: Isosorbide MONOnitrate (24 HR) 30 MG TAB.ER.24H PO SCH (09:00)
[2017-02-20] MEDS ORDERED: Aspirin 81 MG TAB.CHEW PO SCH (09:00)
[2017-02-20] MEDS ORDERED: predniSONE 20 MG TABLET PO SCH ×2 (09:00)
[2017-02-20] MEDS ORDERED: amLODIPine 5 MG TABLET PO SCH (09:00)
[2017-02-20] MEDS ORDERED: Lactulose Oral Soln 20 GM/30 ML UDC PO SCH (09:00)
[2017-02-20] MEDS ORDERED: MOM Conc 10 ML UD.LIQ PO SCH (09:00)
--- NOTE | 2017-02-20 09:13 | Pulmonology Progress Note ---
<Roseann Dawkins - Last Filed: 02/20/17 09:53> Date of Encounter: 02/20/17 Time of Encounter: 09:13 Assessment and Plan (1) Acute CA Status: Acute Patient presented on February 18 with a STEMI. She had a PTCA to her mid RCA with no stent deployed. She is on Brilinta at this time. She is being medically managed for this by cardiology. No chest pain at this time. Plan: Cardiology following Qualifiers: Myocardial infarction ST status: ST elevation myocardial infarction Involved coronary artery: other inferior wall coronary artery Qualified Code(s ): I21.19 - ST elevation (STEMI) myocardial infarction involving other coronary artery of inferior wall (2) COPD with acute exacerbation Status: Acute Mild COPD exacerbation. Does have history of tobacco abuse. In no distress at this time. Plan: 5 days of prednisone 40 mg Schedule DuoNeb every 4-6 hours Symbicort (3) DVT prophylaxis Status: Acute We recommend chemical prophylaxis while in hospital. (4) Left lower lobe pneumonia Status: Acute Patient has chronic left pleural effusion. Does have cough and elevated white count. Elevated white count differential diagnosis could be from the STEMI versus pneumonia. Since she does have a history of COPD and this cough we will go ahead and treat this as a community-acquired pneumonia. Plan: Augmentin twice a day 7 days Qualifiers: Pneumonia type: due to unspecified organism Qualified Code(s): J18.1 - Lobar pneumonia, unspecified organism (5) Pleural effusion on left Status: Acute Most recent CT as well as a CT on 2013 showed a left pleural effusion. It has enlarged since 2014. She does have a history of an underlying lung nodule and possible cancer. There is possibility this is a malignant effusion. Patient is asymptomatic at this time. She is in no distress. With her recent history of a STEMI we will manage this outpatient after a six-week window. Plan: Outpatient pulmonary consult. Subjective Principal diagnosis: Acute CA Interval history: Patient has a history of CVA, COPD and a recent STEMI. She had a balloon angioplasty on February 18 with no stent deployed. She is managed medically by cardiology at this time. She did have a CT scan that showed a large left-sided effusion with a possible pneumonia and some concern for underlying lung nodules. She rested comfortably overnight. She is in no distress this morning and has no complaints. Due to her recent STEMI and asymptomatic pleural effusion we will manage this outpatient. Patient is agreeable to this. Objective PUL Vital signs: Last Vital Signs Temp 98.3 F 02/20/17 04:20 Pulse 100 02/20/17 07:30 Resp 20 02/20/17 07:30 BP 155/68 02/20/17 07:30 Pulse Ox 96 02/20/17 07:30 Results - Laboratory Findings CBC and BMP: 02/19/17 04:20 02/19/17 04:20 Abnormal lab findings: Abnormal lab results WBC 17.9 K/mcL (4.3-11.1) H 02/19/17 04:20 RBC 3.24 M/mcL (3.82-4.97) L 02/19/17 04:20 Hgb 9.6 g/dL (11.5-15.4) L 02/19/17 04:20 Hct 30.0 % (35.3-44.9) L 02/19/17 04:20 Neutrophils # 15.7 K/mcL (1.6-8.9) H 02/19/17 04:20 Chloride 111 mEq/L (98-109) H 02/19/17 04:20 BUN 26 mg/dL (7-20) H 02/19/17 04:20 Est GFR (Non-Af Amer) 58 (> 60) L 02/19/17 04:20 BUN/Creatinine Ratio 28 (6-26) H 02/19/17 04:20 Glucose 130 mg/dL (70-99) H 02/19/17 04:20 - Clinical Findings Intake & Output: Intake & Output 02/19/17 02/20/17 02/20/17 23:59 07:59 15:59 Intake Total 340 / 340 600 / 600 Output Total 150 / 150 Balance 340 / 340 450 / 450 Weight 54.703 kg Consult Discharge Plan - Plan Referrals: Elizabeth Bautista MD [Partnered Physician] - 03/27/17 11:30 am Kurt Moseley MD [Partnered Physician] - 02/23/17 10:45 am (Appt @ [facility]) Prescriptions: Ipratropium/Albuterol Neb [Duoneb] 3 ml IH [id number] #60 inhsol Nitroglycerin 0.4 mg SL Q5MIN PRN #30 tab.subl PRN Reason: Chest Pain Amoxicillin/Clavulanate [Augmentin] 875 mg PO BIDWM #14 tablet Atorvastatin [Lipitor] 80 mg PO HS #30 tablet Budesonide/Formoterol 160/4.5 [Symbicort 160/4.5] 2 puff IH BIDR #1 inhaler Isosorbide MONOnitrate (24 HR) [Imdur] 30 mg PO DAILY #30 tab.er.24h Losartan [Cozaar] 25 mg PO DAILY #30 tablet Metoprolol [Lopressor] 25 mg PO BID #60 tablet PredniSONE 40 mg PO DAILY #5 tablet Ticagrelor [Brilinta] 90 mg PO BID #60 tablet <Elizabeth Bautista M - Last Filed: 02/20/17 16:38> Date of Encounter: 02/20/17 Objective PUL Vital signs: Last Vital Signs Temp 98.3 F 02/20/17 04:20 Pulse 105 02/20/17 13:00 Resp 20 02/20/17 13:00 BP 121/57 02/20/17 13:00 Pulse Ox 96 02/20/17 13:00 Results - Laboratory Findings CBC and BMP: 02/19/17 04:20 02/19/17 04:20 Abnormal lab findings: Abnormal lab results WBC 17.9 K/mcL (4.3-11.1) H 02/19/17 04:20 RBC 3.24 M/mcL (3.82-4.97) L 02/19/17 04:20 Hgb 9.6 g/dL (11.5-15.4) L 02/19/17 04:20 Hct 30.0 % (35.3-44.9) L 02/19/17 04:20 Neutrophils # 15.7 K/mcL (1.6-8.9) H 02/19/17 04:20 Chloride 111 mEq/L (98-109) H 02/19/17 04:20 BUN 26 mg/dL (7-20) H 02/19/17 04:20 Est GFR (Non-Af Amer) 58 (> 60) L 02/19/17 04:20 BUN/Creatinine Ratio 28 (6-26) H 02/19/17 04:20 Glucose 130 mg/dL (70-99) H 02/19/17 04:20 - Clinical Findings Intake & Output: Intake & Output 02/20/17 02/20/17 02/20/17 07:59 15:59 23:59 Intake Total 600 / 600 480 / 480 Output Total 150 / 150 Balance 450 / 450 480 / 480 Weight 54.703 kg - Attending Attestation I examined this patient and my medical decision-making was reviewed with the RESTAURANT KITCHEN AND SERVICE MANAGER/PA/Advanced Practice Nurse/Resident Physician. I agree with the documented findings, disposition and treatment plan as described except to the extent set forth below. Patient seen and examined. Labs, radiology, chart personally reviewed. 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 I suspect the patient has chronic changes and no intervention due to recent acute CA. Cardiovascular: Patient had cardiac events and when stable, if needed to do procedure, then will plan to do it. GI: Nutrition per dietary and GI prophylaxis per routine Heme: DVT prophylaxis per routine I will arrange CT chest without contrast as outpatient in about 6 weeks and follow-up as outpatient.
[2017-02-20] MEDS ORDERED: Budesonide/Formoterol 160/4.5 MDI IH SCH (10:00)
--- NOTE | 2017-02-20 11:56 | Electrocardiograph Report ---
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
--- NOTE | 2017-02-20 12:25 | Cardiology Progress Note ---
Date of Encounter: 02/20/17 Time of Encounter: 12:22 Assessment and Plan (1) Acute SD Current Visit: Yes Status: Acute Agree with previous management. Continue aspirin/Brilinta, statin, ARB, and BB therapy. No chest pain reported. Importance of medical therapy discussed with daughter and patient. Qualifiers: Myocardial infarction ST status: ST elevation myocardial infarction Involved coronary artery: other inferior wall coronary artery Qualified Code(s ): I21.19 - ST elevation (STEMI) myocardial infarction involving other coronary artery of inferior wall (2) Paroxysmal atrial fibrillation Current Visit: Yes Status: Acute Paroxysmal atrial fibrillation noted. No palpitations, lightheadedness, near-syncope, or syncope reported. Given patient's advanced age and poor memory, she does not represent a good Coumadin candidate. Patient also will require antiplatelet therapy after PTCA. Continue aspirin important for now. Continue beta lauro. Continue to monitor and reevaluate as outpatient. (3) Left lower lobe pneumonia Current Visit: No Status: Acute Appreciate pulmonology input. Qualifiers: Pneumonia type: due to unspecified organism Qualified Code(s): J18.1 - Lobar pneumonia, unspecified organism Discussion w patient/family: The assessment and plan as outlined above was discussed with the patient and/or family members who expressed understanding and agreement. All questions were answered. Thank you for involving us in the care of your patient. Please call with any questions. Subjective Principal diagnosis: Acute SD Interval history: Events of hospitalization reviewed. Patient seen and examined earlier this morning. Sitting in a chair. She denied chest pain or discomfort. Denied orthopnea/PND. Anxious to be discharged. Objective General: Conversant, No Apparent Distress HEENT: Atraumatic, Normocephaly, Mucus Membranes Moist Neck: No JVD, Normal carotid pulses Cardiac: Reg Rate and Rhythm, Normal S1 and S2, No Murmur Lungs: Normal Breath Sounds, No Wheeze, Rales, Rhonchi Neuro: Alert and responsive, No focal deficits noted Abdomen: Soft, Non-Tender Skin: No rashes noted on visualized skin Musculoskeletal: No Chest Wall Tenderness Extremities: No Clubbing, No Cyanosis, No Edema Results 02/19/17 04:20 02/19/17 04:20 - Imaging and Cardiology Echo: report reviewed Cardiac cath: report reviewed - EKG Interpretation EKG results cardiology: personally reviewed (ECG from 02/19/2017 demonstrates atrial fibrillation.) Consult Discharge Plan - Plan Referrals: Elizabeth Bautista MD [Partnered Physician] - 03/27/17 11:30 am
[2017-02-20 13:29] VITALS: BP 121/57
--- NOTE | 2017-02-20 13:55 | Discharge Summary ---
Date of Encounter: 02/20/17 Time of Encounter: 13:45 - Discharge Diagnosis (1) Acute [place] Priority: Primary Status: Acute Comments: Patient transferred from [facility] to [facility] for urgent left heart catheterization with troponin elevation. Qualifiers: Myocardial infarction ST status: ST elevation myocardial infarction Involved coronary artery: other inferior wall coronary artery Qualified Code(s ): I21.19 - ST elevation (STEMI) myocardial infarction involving other coronary artery of inferior wall (2) Left lower lobe pneumonia Priority: Secondary Status: Acute Comments: Presented from [facility] to [facility] for management treatment of pneumonia. Qualifiers: Pneumonia type: due to unspecified organism Qualified Code(s): J18.1 - Lobar pneumonia, unspecified organism (3) Pleural effusion on left Priority: Secondary Status: Acute Comments: Noted to have left pleural effusion on CT scan. (4) Acute renal failure Priority: Secondary Status: Acute Comments: Initially presented with acute kidney injury, now resolved. Qualifiers: Acute renal failure type: unspecified Qualified Code(s): N17.9 - Acute kidney failure, unspecified - Discharge Medications Prescriptions: Ipratropium/Albuterol Neb [Duoneb] 3 ml IH [id number] #60 inhsol Nitroglycerin 0.4 mg SL Q5MIN PRN #30 tab.subl PRN Reason: Chest Pain Amoxicillin/Clavulanate [Augmentin] 875 mg PO BIDWM #14 tablet Atorvastatin [Lipitor] 80 mg PO HS #30 tablet Budesonide/Formoterol 160/4.5 [Symbicort 160/4.5] 2 puff IH BIDR #1 inhaler Isosorbide MONOnitrate (24 HR) [Imdur] 30 mg PO DAILY #30 tab.er.24h Losartan [Cozaar] 25 mg PO DAILY #30 tablet Metoprolol [Lopressor] 25 mg PO BID #60 tablet PredniSONE 40 mg PO DAILY #5 tablet Ticagrelor [Brilinta] 90 mg PO BID #60 tablet Home Medications: Acetaminophen [Tylenol] 650 mg PO Q4HR 02/17/17 [History] Amlodipine [Norvasc] 5 mg PO DAILY 02/17/17 [History] Bisacodyl [Laxative] 10 mg PO QAM 02/17/17 [History] CloNIDine HCl [Clonidine HCl] 0.2 mg PO BID 02/17/17 [History] Docusate [Colace] 100 mg PO BID 02/17/17 [History] GuaiFENesin ER [Mucinex] 600 mg PO TID 02/17/17 [History] Lactulose 20 gm PO QAM 02/17/17 [History] Lovastatin [Altoprev] 40 mg PO QAM 02/17/17 [History] Magnesium Hydroxide [Milk of Magnesia] 400 mg PO QAM 02/17/17 [History] Omeprazole 20 mg PO QAM 02/17/17 [History] Vit C/E/Zn/Coppr/Lutein/Zeaxan [Preservision Areds 2 Softgel] 1 cap PO QAM 02/17 [History] Amoxicillin/Clavulanate [Augmentin] 875 mg PO BIDWM #14 tablet 02/20/17 [Rx] Aspirin 81 mg PO DAILY tab.chew 02/20/17 [Rx] Atorvastatin [Lipitor] 80 mg PO HS #30 tablet 02/20/17 [Rx] Budesonide/Formoterol 160/4.5 [Symbicort 160/4.5] 2 puff IH BIDR #1 inhaler 02/03 [Rx] Ipratropium/Albuterol Neb [Duoneb] 3 ml IH [id number] #60 inhsol 02/20/17 [Rx] Isosorbide MONOnitrate (24 HR) [Imdur] 30 mg PO DAILY #30 tab.er.24h 02/20/17 [ Rx] Losartan [Cozaar] 25 mg PO DAILY #30 tablet 02/20/17 [Rx] Metoprolol [Lopressor] 25 mg PO BID #60 tablet 02/20/17 [Rx] Nitroglycerin 0.4 mg SL Q5MIN PRN #30 tab.subl 02/20/17 [Rx] PredniSONE 40 mg PO DAILY #5 tablet 02/20/17 [Rx] Ticagrelor [Brilinta] 90 mg PO BID #60 tablet 02/20/17 [Rx] Allergies/Adverse Reactions: Allergies No Known Allergies Allergy (Verified 02/17/17 18:07) Procedures/tests Complete & Pending: Procedures Performed prior 72 hours Category Date Time Status Left Heart Cath [CL Cardiac Catheterization] [CL] 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 02/18/17 11:10 Completed Routine ECG 12 lead ECG [ECG] Routine Y 02/18/17 13:40 Completed ECG 12 lead ECG [ECG] Routine Y 02/19/17 07:00 Completed ECG 12 lead ECG [ECG] Stat Y 02/18/17 13:43 Ordered EV echocardiogram Routine Y 02/19/17 13:43 Completed Date of admission: 02/18/17 10:58 Primary care physician: PCP NO Consults: 02/18/17 13:43 Consult to Cardiac Rehabilitation-Phase1 [CONS] Routine Comment: Reason for Consult: AMI Call Completed: Yes Consult to Nurse Navigator [CONS] Routine Comment: 02/19/17 08:07 Consult to Physical Therapy [CONS] Routine Comment: Evaluate, develop and implement POC Consult to Pulmonology [CONS] Routine Consulting Provider: [facility] [place] Reason for Consult: LLL pneumonia, L pleural effusion, tarnsfer from [facility] Call Completed: Yes Consult to Stemmer Machine [CONS] Routine Reason for SW Consult: dc planning Discharging clinician: Rodrick Luna Anticipated date of discharge: 02/20/17 - Patient Status Disposition: Transfer Inpatient Rehab Fac Condition: Fair Overall status at discharge: patient is progressing back to baseline - Discharge Instructions Follow Up With: Elizabeth Bautista MD [Partnered Physician] - 03/27/17 11:30 am Kurt Moseley MD [Partnered Physician] - 02/23/17 10:45 am (Appt @ [facility]) - Diet and Activity Diet: low fat, low cholesterol, low salt diet (see continuity form) - Hospital Course Hospital course: Ms. Jack is a 87 year old female who apparently was transferred from [facility] to [facility] for further evaluation of shortness of breath and pneumonia. Had a CT scan showing left pleural effusion and suspicious for pneumonia. Started by antibiotics at that facility. Leukocytosis noted-- WBC 18.3. Afebrile. Had apparent history of lung cancer. Patient apparently rescinded her DNR/Comfort Care arrest/DNI status and was subsequently transferred from [facility] to [facility] for acute NM with troponin of 11.64. Underwent urgent left heart catheterization which showed subtotal occlusion s/p successful PTCA with residual 60% stenosis- - small vessel ~2mm, unable to pass stent. Catheterization also shows mid LAD 60 % stenosis and 100% mid circumflex MOBILE THERAPIST with ipsilateral collaterals. After heart catheterization patient did resume her DNR/Comfort Care arrest/DNI status. Pulm consult completed for further evaluation of pleural effusion, pneumonia, and shortness of breath. Started on prednisone 40 mg by mouth daily for the next 5 days, Augmentin by mouth twice a day for 7 days, duonebs, and Symbicort. Has outpatient follow-up with pathology scheduled. Per discussion with Dr. Peña noted to have paroxysmal atrial fibrillation, currently sinus rhythm. No previous knowledge of history of A. fib. Not deemed candidate for further anticoagulation. Social work and physical therapy consulted for discharge planning. Prepping for discharge back to inpatient [facility]. Continuity form completed. Plan discussed with patient and family verbalized understanding and agreed with plan. All questions answered. Follow- up scheduled. Time spent discussing smoking cessation with patient: more than 10 minutes - Time Spent with Patient Total time spent providing and/or coordinating discharge services: Greater than 30 minutes (discharge instructions and paperwork) Physical Examination Vital Signs, Last 4 Hours Pulse Resp BP Pulse Ox 02/20/17 13:00 105 20 121/57 96 02/20/17 11:00 96 20 104/53 94 Other: See progress note from today
--- NOTE | 2017-02-20 14:08 | Physician Discharge Referral ---
ExtendedCare Referral Info Transfer To: [facility] (back to her inpatient bed) Provider in Charge: Casey Provider in Charge after Transfer: PCP - Diagnosis (1) Acute [place] Status: Acute (2) Left lower lobe pneumonia Status: Acute (3) Pleural effusion on left Status: Acute (4) Acute renal failure Status: Resolved Prognosis: Fair Aware of Diagnosis: Patient, Family Aware of Prognosis: Patient, Family - Transfer Medications Prescriptions: Ipratropium/Albuterol Neb [Duoneb] 3 ml IH [id number] #60 inhsol Nitroglycerin 0.4 mg SL Q5MIN PRN #30 tab.subl PRN Reason: Chest Pain Amoxicillin/Clavulanate [Augmentin] 875 mg PO BIDWM #14 tablet Atorvastatin [Lipitor] 80 mg PO HS #30 tablet Budesonide/Formoterol 160/4.5 [Symbicort 160/4.5] 2 puff IH BIDR #1 inhaler Isosorbide MONOnitrate (24 HR) [Imdur] 30 mg PO DAILY #30 tab.er.24h Losartan [Cozaar] 25 mg PO DAILY #30 tablet Metoprolol [Lopressor] 25 mg PO BID #60 tablet PredniSONE 40 mg PO DAILY #5 tablet Ticagrelor [Brilinta] 90 mg PO BID #60 tablet Home Medications: Acetaminophen [Tylenol] 650 mg PO Q4HR 02/17/17 [History] Amlodipine [Norvasc] 5 mg PO DAILY 02/17/17 [History] Bisacodyl [Laxative] 10 mg PO QAM 02/17/17 [History] CloNIDine HCl [Clonidine HCl] 0.2 mg PO BID 02/17/17 [History] Docusate [Colace] 100 mg PO BID 02/17/17 [History] GuaiFENesin ER [Mucinex] 600 mg PO TID 02/17/17 [History] Lactulose 20 gm PO QAM 02/17/17 [History] Lovastatin [Altoprev] 40 mg PO QAM 02/17/17 [History] Magnesium Hydroxide [Milk of Magnesia] 400 mg PO QAM 02/17/17 [History] Omeprazole 20 mg PO QAM 02/17/17 [History] Vit C/E/Zn/Coppr/Lutein/Zeaxan [Preservision Areds 2 Softgel] 1 cap PO QAM 02/17 [History] Amoxicillin/Clavulanate [Augmentin] 875 mg PO BIDWM #14 tablet 02/20/17 [Rx] Aspirin 81 mg PO DAILY tab.chew 02/20/17 [Rx] Atorvastatin [Lipitor] 80 mg PO HS #30 tablet 02/20/17 [Rx] Budesonide/Formoterol 160/4.5 [Symbicort 160/4.5] 2 puff IH BIDR #1 inhaler 02/03 [Rx] Ipratropium/Albuterol Neb [Duoneb] 3 ml IH [id number] #60 inhsol 02/20/17 [Rx] Isosorbide MONOnitrate (24 HR) [Imdur] 30 mg PO DAILY #30 tab.er.24h 02/20/17 [ Rx] Losartan [Cozaar] 25 mg PO DAILY #30 tablet 02/20/17 [Rx] Metoprolol [Lopressor] 25 mg PO BID #60 tablet 02/20/17 [Rx] Nitroglycerin 0.4 mg SL Q5MIN PRN #30 tab.subl 02/20/17 [Rx] PredniSONE 40 mg PO DAILY #5 tablet 02/20/17 [Rx] Ticagrelor [Brilinta] 90 mg PO BID #60 tablet 02/20/17 [Rx] Allergies/Adverse Reactions: Allergies No Known Allergies Allergy (Verified 02/17/17 18:07) - Respiratory Orders None Smoking Cessation: Smoking cessation has been advised. For more information, call the [place] Tobacco Quit Line at 5-091-BBBJ-NOW. - Ancillary Orders May use pressure relief devices daily prn - Advance Directives Power of Plant Science Professor: Yes Code Status: DNR-Arrest/Don't Intubate - Mobility Orders Chair, Other (with assist) - Rehabiliation Orders Rehab Potential: Fair Rehab Orders: Evaluation for Physical Therapy - Diet Orders No Added Salt (JOSE CARLOS), Cardiac CERTIFICATION: I certify that the transfer of the above named patient to an Extended Care Facility is necessary for the continuing treatment of the diagnosis listed. The above information is true and accurate reflection of patient's current condition. Confidential - Redisclosure prohibited without a patient's written consent.
== END 2017-02-20 15:09 | DRG 250 ==
LOC: ICNU 10:58
PROVIDERS: ADMIT Emergency Medicine; ATTEND Emergency Medicine